=== PATIENT | male | born 1950 | race Caucasian/White ===

== ENCOUNTER 2020-11-30 08:34 | Emergency (ER) | payer MEDICARE ==
[~2020-11-30 08:34] MED LIST: MEDROL 4MG DOSEP4 MG PO
[2020-11-30 09:26] LABS: BILIRUBIN NEGATIVE (NEGATIVE); BLOOD NEGATIVE Ery/uL (NEGATIVE); CLARITY CLEAR (CLEAR); COLOR YELLOW (YELLOW); GLUCOSE (U) NORMAL (NORMAL); LEUKOCYTES NEGATIVE Leu/uL (NEGATIVE); NITRITE NEGATIVE (NEGATIVE); PROTEIN TRACE (LOW) mg/dL (NEGATIVE)
[2020-11-30 09:26] LABS: BASOPHIL 0.2 % (0-2); EOSINOPHIL 1.2 % (0-7); HCT 41.1 % (42.0-52.0); HGB 14.5 g/dl (13.2-18.0); LYMPHOCYTE 6.8 % (15-48); MCH 32.2 pg (25.0-31.0); MCHC 35.3 g/dL (32.0-36.0); MCV 91.3 fL (78.0-100.0); MONOCYTE 7.6 % (0-12); NRBC 0; PLT 214 K/uL (150-400); RDW 12.9 % (11.5-14.0); WBC 10.4 K/uL (4.0-10.5)
[2020-11-30 09:40] LABS: SQUAMOUS EPITHELIAL CELLS RARE; URINARY WBC RARE
[2020-11-30 10:06] LABS: ALBUMIN 3.8 g/dL (3.4-5.0); BILIRUBIN - TOTAL 1.6 mg/dL (0.2-1.0); CREATININE 0.88 mg/dL (0.67-1.17); GLOBULIN (CALCULATION) 3.7 g/dL; POTASSIUM 3.4 mmol/L (3.5-5.1); TOTAL PROTEIN 7.5 g/dL (6.4-8.2)
[2020-11-30] MEDS ORDERED: METRONIDAZOLE500 MG PO (10:35)
[2020-11-30] MEDS ORDERED: AUGMENTIN 875-1 EACH PO (10:35)
[2020-11-30] MEDS ORDERED: BENTYL10 MG PO (10:36)
== END 2020-11-30 10:48 | disposition home or self-care (01) ==
LOC: FER 08:34
PROVIDERS: Emergency Medicine
DX: K57.92 Diverticulitis of intestine, part unspecified, without perforation or abscess without bleeding (principal); I10 Essential (primary) hypertension
CPT/HCPCS: 36415; 80053; 81001; 85025; 99284

== ENCOUNTER 2021-05-21 09:14 | Emergency (ER) | payer MEDICARE ==
[~2021-05-21 09:14] MED LIST changes: +AUGMENTIN 875-1 EACH PO; +BENTYL10 MG PO; +METRONIDAZOLE500 MG PO
[2021-05-21 11:20] LABS: BASOPHIL 0.2 % (0-2); EOSINOPHIL 3.4 % (0-7); HCT 42.3 % (42.0-52.0); HGB 14.6 g/dl (13.2-18.0); LYMPHOCYTE 7.3 % (15-48); MCH 32.5 pg (25.0-31.0); MCHC 34.5 g/dL (32.0-36.0); MCV 94.2 fL (78.0-100.0); MONOCYTE 7.1 % (0-12); NEUTROPHIL 81.8 % (41-80); NRBC 0; PLT 185 K/uL (150-400); RBC 4.49 M/uL (4.70-6.00); RDW 13.2 % (11.5-14.0); WBC 8.3 K/uL (4.0-10.5)
[2021-05-21 11:40] LABS: ALBUMIN 4.2 g/dL (3.4-5.0); BILIRUBIN - TOTAL 1.3 mg/dL (0.2-1.0); BUN/CREAT RATIO (CALC) 12.4 RATIO; CREATININE 0.89 mg/dL (0.67-1.17); GLOBULIN (CALCULATION) 3.7 g/dL; POTASSIUM 3.5 mmol/L (3.5-5.1); TOTAL PROTEIN 7.9 g/dL (6.4-8.2)
== END 2021-05-21 14:37 | disposition home or self-care (01) ==
LOC: FER 09:14
PROVIDERS: Emergency Medicine
DX: U07.1 COVID-19 (principal); I10 Essential (primary) hypertension; Z23 Encounter for immunization
CPT/HCPCS: 36415; 36600; 80053; 82803; 85025; J7030; M0243; Q0244; U0002